=== PATIENT | female | born 1940 | race African-American/Black ===

== ENCOUNTER 2025-02-14 15:19 | Inpatient (IN) | payer MEDICARE, OTHER ==
[~2025-02-14] VITALS: Ht 160 cm; Wt 57.6 kg
[2025-02-14] MEDS: IV NS 0.9% 1,000 ML BAG IV ONE (15:34)
[2025-02-14] MEDS: IV NS 0.9% 500 ML BAG IV ONE ×2 (15:55→17:35)
[2025-02-14] MEDS ORDERED: APIX2.5T PO (15:57)
[2025-02-14] MEDS ORDERED: ACET-868 PO (15:57)
[2025-02-14] MEDS ORDERED: ACET-2812 PO (15:57)
[2025-02-14] MEDS ORDERED: FAMO-130 PO (15:57)
[2025-02-14] MEDS ORDERED: VALP250S4 PO ×2 (15:57)
[2025-02-14] MEDS ORDERED: MELA3TAB41 PO (15:57)
[2025-02-14] MEDS ORDERED: LEVO25TA7 PO (15:57)
[2025-02-14] MEDS ORDERED: SENN-287 PO (15:57)
[2025-02-14] MEDS ORDERED: MAGN355O5 PO (15:57)
[2025-02-14] MEDS ORDERED: LOPE2TAB25 PO (15:57)
[2025-02-14] MEDS ORDERED: CHOL100043 PO (15:57)
[2025-02-14] MEDS ORDERED: ATOR20TA PO (15:57)
[2025-02-14 16:15] LABS: PLATELET COUNT (AUTO) 261 K/uL (150-450); RED BLOOD CELL COUNT(AUTO) 3.94 MIL/uL (4.0-5.2); RED CELL DISTRIBUTION WIDTH 14.9 % (11.5-15.0); WHITE BLOOD COUNT (AUTO) 6.8 K/uL (4.3-11.0)
[2025-02-14 16:25] LABS: CALCIUM, SERUM 9.8 mg/dL (8.5-10.1); CREATININE 2.2 mg/dL (0.6-1.3); SERUM AMMONIA 42 umol/L (11-32); SODIUM SERUM 145 mmol/L (136-145); UREA NITROGEN, BLOOD 21 mg/dL (7-18)
[2025-02-14 16:27] LABS: INR 1.08 (0.91-1.10)
[2025-02-14 16:30] LABS: ASPARTATE AMINOTRANSFERASE 42 U/L (15-37); TOTAL PROTEIN, SERUM 6.2 g/dL (6.4-8.2)
[2025-02-14 16:31] LABS: ALCOHOL, BLOOD < 3 mg/dL (0-10)
[2025-02-14 16:38] LABS: LACTIC ACID 13.1 mmol/L (0.4-2.0)
[2025-02-14] MEDS ORDERED: PIPERACI/TAZO 3.375GM/D5W 50ML PB IV ONE (17:02)
[2025-02-14] MEDS: PIPERACILLIN /TAZOBACTAM 3.375 G in IV D5W 50 ML IV ONE (17:05)
[2025-02-14] MEDS ORDERED: IOHEXOL-350 100 ML VIAL IV ONE (17:19)
[2025-02-14] MEDS ORDERED: IV NS 0.9% 250 ML IV ONE (17:19)
[2025-02-14 18:20] LABS: APPEARANCE,URINE SLIGHTLY CLOUDY (CLEAR); BLOOD, URINE 3+ Ery/uL (NEGATIVE); LEUKOCYTE ESTERASE ,URINE NEGATIVE (NEGATIVE); NITRITE, URINE NEGATIVE (NEGATIVE); UGLUCOSE NEGATIVE (NEGATIVE)
[2025-02-14 18:34] LABS: AMPHETAMINE, URINE NEGATIVE (NEGATIVE); BARBITURATE, URINE NEGATIVE (NEGATIVE); BENZODIAZEPINE, URINE NEGATIVE (NEGATIVE); CANNABINOID, URINE NEGATIVE (NEGATIVE); COCCAINE, URINE NEGATIVE (NEGATIVE); OPIATE, URINE NEGATIVE (NEGATIVE)
[2025-02-14 18:36] LABS: ADD URINE CULTURE YES
[2025-02-14 18:37] LABS: COARSE GRANULAR CASTS,URINE Few /LPF (None Seen); SQUAMOUS EPITHELIAL CELL,UR Few /HPF (None Seen)
[2025-02-14] MEDS: LEVOTHYROXINE INJ 100 MCG VIAL IV ONE (20:53)
[2025-02-14] MEDS ORDERED: ONDANSETRON HCL/PF 4 MG/2 ML VIAL IVP PRN (21:00)
[2025-02-14] MEDS ORDERED: NOREPINEPHRINE 8 MG in IV NS 0.9% 250 ML IV PRN (21:00)
[2025-02-14 21:45] VITALS: BP 131/87; TEMP 96.3; O2SAT 93
[2025-02-14 22:02] VITALS: BP 102/64; O2SAT 98
[2025-02-14 22:30] VITALS: BP 108/77; O2SAT 100
[2025-02-14 23:00] VITALS: BP 111/60; O2SAT 100
[2025-02-14] MEDS ORDERED: LEVETIRACETAM (500MG) 500 MG/5 ML VIAL IV ONE (23:20)
[2025-02-14] MEDS: LEVETIRACETAM (500MG) 500 MG in IV NS 0.9% 100 ML IV SCH (23:36)
[2025-02-14] MEDS: IV NS 0.9% 250 ML IV PRN (23:37)
[2025-02-15] VITALS (21 sets, daily range): BP systolic 91–120; BP diastolic 62–96; TEMP 96.7–99; O2SAT 92–100
[2025-02-15] MEDS: PIPERCILLIN/TAZOBACTAM 2.25GM/D5W 50MLPB IV ONE (01:30)
[2025-02-15] MEDS: PIPERACILLIN /TAZOBACTAM 2.25 G in IV D5W 50 ML IV ONE (01:31)
[2025-02-15] MEDS: NA PHOS,M-B/NA PHOS,DI-BA 1 EA ENEMA RC ONE (03:09)
[2025-02-15 05:08] LABS: CALCIUM, SERUM 9.4 mg/dL (8.5-10.1); CREATININE 1.8 mg/dL (0.6-1.3); SODIUM SERUM 137 mmol/L (136-145); UREA NITROGEN, BLOOD 26 mg/dL (7-18)
[2025-02-15 05:38] LABS: PHOSPHORUS 5.2 mg/dL (2.5-4.9)
[2025-02-15] MEDS: LEVOTHYROXINE INJ 100 MCG VIAL IV SCH (07:53)
[2025-02-15] MEDS: LEVETIRACETAM (500MG) 500 MG in IV NS 0.9% 100 ML IV SCH (09:22)
[2025-02-15] MEDS: ASPIRIN EC 81 MG TABLET.DR PO SCH (09:22)
[2025-02-15] MEDS: ENOXAPARIN SODIUM 60 MG/0.6 ML DISP.SYRIN SQ SCH (09:24)
[2025-02-15 09:34] LABS: PLATELET COUNT (AUTO) 242 K/uL (150-450); RED BLOOD CELL COUNT(AUTO) 5.11 MIL/uL (4.0-5.2); RED CELL DISTRIBUTION WIDTH 15.0 % (11.5-15.0); WHITE BLOOD COUNT (AUTO) 12.1 K/uL (4.3-11.0)
[2025-02-15] MEDS: PIPERACILLIN /TAZOBACTAM 2.25 G in IV D5W 50 ML IV SCH (10:28)
[2025-02-15 16:17] LABS: CREATININE, URINE 82.0 MG/DL (30.0-125.0); URINE SODIUM, RANDOM 13.0 mmol/l (40-220); URINE TOTAL PROTEIN 296.8 mg/dL (0-11.9)
[2025-02-15] MEDS: IV NS 0.9% 1,000 ML BAG IV PRN (18:25)
[2025-02-16] VITALS: BP 134/84; TEMP 98.6; O2SAT 97
[2025-02-16 04:00] VITALS: BP 116/69; TEMP 97.7; O2SAT 97
[2025-02-16 08:00] VITALS: BP 138/94; TEMP 97.7; O2SAT 96
[2025-02-16 08:23] LABS: PLATELET COUNT (AUTO) 267 K/uL (150-450); RED BLOOD CELL COUNT(AUTO) 4.28 MIL/uL (4.0-5.2); RED CELL DISTRIBUTION WIDTH 14.8 % (11.5-15.0); WHITE BLOOD COUNT (AUTO) 10.6 K/uL (4.3-11.0)
[2025-02-16 08:55] LABS: ASPARTATE AMINOTRANSFERASE > 1000 U/L (15-37); CALCIUM, SERUM 9.2 mg/dL (8.5-10.1); CREATININE 3.9 mg/dL (0.6-1.3); PHOSPHORUS 6.6 mg/dL (2.5-4.9); SODIUM SERUM 143 mmol/L (136-145); TOTAL PROTEIN, SERUM 6.3 g/dL (6.4-8.2); UREA NITROGEN, BLOOD 41 mg/dL (7-18)
[2025-02-16 10:43] LABS: CREATINE KINASE, TOTAL 44392 U/L (26-192)
[2025-02-16 12:00] VITALS: BP 129/86; TEMP 98.2; O2SAT 95
[2025-02-16 16:00] VITALS: BP 135/76; TEMP 98.2; O2SAT 97
[2025-02-16 20:00] VITALS: BP 141/73; TEMP 97.5; O2SAT 97
[2025-02-17] VITALS: BP 139/63; TEMP 97.5; O2SAT 97
[2025-02-17 04:00] VITALS: BP 128/77; TEMP 97.7; O2SAT 96
[2025-02-17 05:08] LABS: PTH, INTACT 183 pg/mL (15-65)
[2025-02-17 06:35] LABS: CALCIUM, SERUM 8.6 mg/dL (8.5-10.1); CREATININE 4.6 mg/dL (0.6-1.3); SODIUM SERUM 150.0 mmol/L (136-145); UREA NITROGEN, BLOOD 50.0 mg/dL (7-18)
[2025-02-17 06:37] LABS: PLATELET COUNT (AUTO) 205 K/uL (150-450); RED BLOOD CELL COUNT(AUTO) 3.31 MIL/uL (4.0-5.2); RED CELL DISTRIBUTION WIDTH 15.0 % (11.5-15.0); WHITE BLOOD COUNT (AUTO) 9.8 K/uL (4.3-11.0)
[2025-02-17 07:00] LABS: PHOSPHORUS 6.2 mg/dL (2.5-4.9)
[2025-02-17 08:16] VITALS: BP 146/72; TEMP 97.8; O2SAT 96
[2025-02-17] MEDS: HEPARIN SODIUM, PORCINE 5000 UNITS/1 ML VIAL SQ SCH (08:54)
[2025-02-17 12:30] VITALS: BP 142/79; TEMP 97.6; O2SAT 98
[2025-02-17] MEDS: IV 1/2NS 1000 ML 1,000 ML IV PRN (13:07)
[2025-02-17 16:36] VITALS: BP 150/84; TEMP 97.6; O2SAT 98
[2025-02-17 20:00] VITALS: BP 118/90; TEMP 98.1; O2SAT 95
[2025-02-18 04:00] VITALS: BP 115/71; TEMP 98.3; O2SAT 98
[2025-02-18 05:58] LABS: PLATELET COUNT (AUTO) 185 K/uL (150-450); RED BLOOD CELL COUNT(AUTO) 3.06 MIL/uL (4.0-5.2); RED CELL DISTRIBUTION WIDTH 14.7 % (11.5-15.0); WHITE BLOOD COUNT (AUTO) 8.8 K/uL (4.3-11.0)
[2025-02-18 06:04] LABS: ASPARTATE AMINOTRANSFERASE 771.0 U/L (15-37); CALCIUM, SERUM 8.7 mg/dL (8.5-10.1); CREATININE 4.8 mg/dL (0.6-1.3); PHOSPHORUS 5.2 mg/dL (2.5-4.9); SODIUM SERUM 146.0 mmol/L (136-145); TOTAL PROTEIN, SERUM 5.7 g/dL (6.4-8.2); UREA NITROGEN, BLOOD 51.0 mg/dL (7-18)
[2025-02-18 08:00] VITALS: BP 143/68; TEMP 97.7; O2SAT 97
[2025-02-18 10:39] LABS: LDL 71.0 mg/dL (0-99)
[2025-02-18] MEDS: CITRIC ACID/SODIUM CITRATE (BICITRA)15 ML UDC PO SCH (12:47)
[2025-02-18 16:00] VITALS: BP 148/73; TEMP 97.5; O2SAT 100
[2025-02-18 16:13] LABS: APPEARANCE,URINE CLOUDY (CLEAR); BLOOD, URINE 3+ Ery/uL (NEGATIVE); LEUKOCYTE ESTERASE ,URINE 2+ (NEGATIVE); NITRITE, URINE NEGATIVE (NEGATIVE); UGLUCOSE NEGATIVE (NEGATIVE)
[2025-02-18 16:22] LABS: URINE AMORPHOUS URATE Many /HPF (None Seen)
[2025-02-18 16:23] LABS: COARSE GRANULAR CASTS,URINE Moderate /LPF (None Seen); SQUAMOUS EPITHELIAL CELL,UR Moderate /HPF (None Seen)
[2025-02-18 16:24] LABS: ADD URINE CULTURE YES
[2025-02-18] MEDS: CEFEPIME 1 GM in IV D5W 50 ML IV SCH (21:20)
[2025-02-18 22:00] VITALS: BP 137/75; TEMP 97.5; O2SAT 100
[2025-02-19 04:00] VITALS: BP 132/84; TEMP 97.5; O2SAT 100
[2025-02-19 05:59] LABS: PLATELET COUNT (AUTO) 194 K/uL (150-450); RED BLOOD CELL COUNT(AUTO) 2.95 MIL/uL (4.0-5.2); RED CELL DISTRIBUTION WIDTH 14.5 % (11.5-15.0); WHITE BLOOD COUNT (AUTO) 7.5 K/uL (4.3-11.0)
[2025-02-19 06:14] LABS: ASPARTATE AMINOTRANSFERASE 453.0 U/L (15-37); CALCIUM, SERUM 8.6 mg/dL (8.5-10.1); CREATININE 4.0 mg/dL (0.6-1.3); PHOSPHORUS 4.0 mg/dL (2.5-4.9); SODIUM SERUM 144.0 mmol/L (136-145); TOTAL PROTEIN, SERUM 5.7 g/dL (6.4-8.2); UREA NITROGEN, BLOOD 53.0 mg/dL (7-18)
[2025-02-19 08:00] VITALS: BP 126/68; TEMP 97.3; O2SAT 94
[2025-02-19] MEDS: LACTULOSE 10 G/15 ML UDC (PYXIS) PR ONE (14:48)
[2025-02-19 16:00] VITALS: BP 116/73; TEMP 97.1; O2SAT 96
[2025-02-19 20:00] VITALS: BP 124/70; TEMP 98; O2SAT 95
[2025-02-19 23:27] LABS: APPEARANCE,URINE CLEAR (CLEAR); BLOOD, URINE 2+ Ery/uL (NEGATIVE); LEUKOCYTE ESTERASE ,URINE NEGATIVE (NEGATIVE); NITRITE, URINE NEGATIVE (NEGATIVE); UGLUCOSE NEGATIVE (NEGATIVE)
[2025-02-19 23:36] LABS: ADD URINE CULTURE NO; SQUAMOUS EPITHELIAL CELL,UR Few /HPF (None Seen)
[2025-02-20 04:00] VITALS: BP 120/64; TEMP 98; O2SAT 95
[2025-02-20 07:10] LABS: PLATELET COUNT (AUTO) 188 K/uL (150-450); RED BLOOD CELL COUNT(AUTO) 2.68 MIL/uL (4.0-5.2); RED CELL DISTRIBUTION WIDTH 14.9 % (11.5-15.0); WHITE BLOOD COUNT (AUTO) 6.3 K/uL (4.3-11.0)
[2025-02-20 07:20] LABS: SERUM AMMONIA 15.0 umol/L (11-32)
[2025-02-20 07:27] LABS: CALCIUM, SERUM 8.5 mg/dL (8.5-10.1); CREATININE 3.3 mg/dL (0.6-1.3); PHOSPHORUS 2.9 mg/dL (2.5-4.9); SODIUM SERUM 143.0 mmol/L (136-145); UREA NITROGEN, BLOOD 44.0 mg/dL (7-18)
[2025-02-20] MEDS: LEVOTHYROXINE SODIUM 50 MCG TABLET PO SCH (07:48)
[2025-02-20 08:00] VITALS: BP 126/80; TEMP 97.7; O2SAT 98
[2025-02-20 08:18] LABS: CREATINE KINASE, TOTAL 3109.0 U/L (26-192)
[2025-02-20 08:24] LABS: ASPARTATE AMINOTRANSFERASE 227.0 U/L (15-37); TOTAL PROTEIN, SERUM 5.0 g/dL (6.4-8.2)
[2025-02-20 09:54] LABS: LYMPHOCYTES % (MANUAL) 19 % (16-48); MONOCYTES % (MANUAL) 7 % (0-11.0); NEUTROPHILS % (MANUAL) 71 (42-76); PLATELET ESTIMATE ADEQUATE
[2025-02-20 16:00] VITALS: BP 125/72; TEMP 98.4; O2SAT 100
[2025-02-20 20:00] VITALS: BP 128/73; TEMP 98.2; O2SAT 99
[2025-02-21 04:00] VITALS: BP 127/69; TEMP 98.2; O2SAT 100
[2025-02-21 06:00] LABS: PLATELET COUNT (AUTO) 211 K/uL (150-450); RED BLOOD CELL COUNT(AUTO) 2.68 MIL/uL (4.0-5.2); RED CELL DISTRIBUTION WIDTH 14.6 % (11.5-15.0); WHITE BLOOD COUNT (AUTO) 7.1 K/uL (4.3-11.0)
[2025-02-21 06:13] LABS: SERUM AMMONIA 1.0 umol/L (11-32)
[2025-02-21 06:14] LABS: ASPARTATE AMINOTRANSFERASE 143.0 U/L (15-37); CALCIUM, SERUM 8.7 mg/dL (8.5-10.1); CREATININE 2.9 mg/dL (0.6-1.3); PHOSPHORUS 3.1 mg/dL (2.5-4.9); SODIUM SERUM 144.0 mmol/L (136-145); TOTAL PROTEIN, SERUM 5.1 g/dL (6.4-8.2); UREA NITROGEN, BLOOD 41.0 mg/dL (7-18)
[2025-02-21 06:25] LABS: CREATINE KINASE, TOTAL 1510.0 U/L (26-192)
[2025-02-21 08:00] VITALS: BP 136/84; TEMP 97.5; O2SAT 99
[2025-02-21 16:00] VITALS: BP 120/55; TEMP 97.1; O2SAT 99
[2025-02-21 20:00] VITALS: BP 115/72; TEMP 98.2; O2SAT 99
[2025-02-21] MEDS: VALPROIC ACID 250 MG/5 ML UDC PO SCH (21:28)
[2025-02-22 04:00] VITALS: BP 126/76; TEMP 98.2; O2SAT 99
[2025-02-22 06:47] LABS: PLATELET COUNT (AUTO) 232 K/uL (150-450); RED BLOOD CELL COUNT(AUTO) 2.69 MIL/uL (4.0-5.2); RED CELL DISTRIBUTION WIDTH 14.4 % (11.5-15.0); WHITE BLOOD COUNT (AUTO) 8.4 K/uL (4.3-11.0)
[2025-02-22 06:52] LABS: SERUM AMMONIA 29.0 umol/L (11-32)
[2025-02-22 07:02] LABS: ASPARTATE AMINOTRANSFERASE 89.0 U/L (15-37); CALCIUM, SERUM 8.6 mg/dL (8.5-10.1); CREATININE 2.4 mg/dL (0.6-1.3); PHOSPHORUS 2.6 mg/dL (2.5-4.9); SODIUM SERUM 144.0 mmol/L (136-145); TOTAL PROTEIN, SERUM 5.0 g/dL (6.4-8.2); UREA NITROGEN, BLOOD 37.0 mg/dL (7-18)
[2025-02-22 07:55] LABS: CREATINE KINASE, TOTAL 832.0 U/L (26-192)
[2025-02-22 08:00] VITALS: BP 131/78; TEMP 97.9; O2SAT 99
[2025-02-22] MEDS: VALPROIC ACID 250 MG/5 ML UDC PO SCH (08:27)
[2025-02-22] MEDS: LEVETIRACETAM SOL (5 ML) 100 MG/ML UDC PO SCH (08:27)
[2025-02-22] MEDS: LEVOTHYROXINE SODIUM 25 MCG TABLET PO SCH (08:27)
[2025-02-22] MEDS ORDERED: VALPROIC ACID 250 MG/5 ML UDC PO SCH ×2 (09:00→13:00)
[2025-02-22] MEDS: MAGNESIUM OXIDE 400 MG TABLET PO ONE (11:45)
[2025-02-22 16:00] VITALS: BP 107/72; TEMP 98.2; O2SAT 99
[2025-02-22 20:00] VITALS: BP 123/68; TEMP 97.9; O2SAT 100
[2025-02-23 03:11] LABS: HBSAG SCREEN Negative (Negative); HEPATITIS A AB, IgM Negative (Negative); HEPATITIS B CORE AB, IgM Negative (Negative)
[2025-02-23 04:00] VITALS: BP 128/67; TEMP 97.8; O2SAT 100
[2025-02-23 08:00] VITALS: BP 106/59; TEMP 97.4; O2SAT 100
[2025-02-23 16:00] VITALS: BP 104/60; TEMP 97.3; O2SAT 99
[2025-02-23 20:00] VITALS: BP 138/69; TEMP 97.8; O2SAT 99
[2025-02-23 21:55] LABS: CALCIUM, SERUM 8.8 mg/dL (8.5-10.1); CREATININE 1.8 mg/dL (0.6-1.3); SODIUM SERUM 143.0 mmol/L (136-145); UREA NITROGEN, BLOOD 32.0 mg/dL (7-18)
[2025-02-24 04:00] VITALS: BP 129/69; TEMP 96.8; O2SAT 99
[2025-02-24 06:25] LABS: CALCIUM, SERUM 8.7 mg/dL (8.5-10.1); CREATININE 1.5 mg/dL (0.6-1.3); SODIUM SERUM 144.0 mmol/L (136-145); UREA NITROGEN, BLOOD 30.0 mg/dL (7-18)
[2025-02-24 08:00] VITALS: BP 148/94; TEMP 97.1; O2SAT 99
[2025-02-24] MEDS: IV D5/0.45 NACL 1,000 ML IV SCH (15:38)
[2025-02-24 16:00] VITALS: BP 130/71; TEMP 97.1; O2SAT 100
[2025-02-24 20:10] VITALS: BP 155/72; TEMP 96.8; O2SAT 100
[2025-02-25 04:00] VITALS: BP 128/64; TEMP 96.8; O2SAT 100
[2025-02-25 08:00] VITALS: BP 138/80; TEMP 98.3; O2SAT 100
[2025-02-25 15:40] LABS: PLATELET COUNT (AUTO) 272 K/uL (150-450); RED BLOOD CELL COUNT(AUTO) 2.52 MIL/uL (4.0-5.2); RED CELL DISTRIBUTION WIDTH 14.4 % (11.5-15.0); WHITE BLOOD COUNT (AUTO) 5.2 K/uL (4.3-11.0)
[2025-02-25 15:49] LABS: CALCIUM, SERUM 8.5 mg/dL (8.5-10.1); CREATININE 1.2 mg/dL (0.6-1.3); PHOSPHORUS 2.3 mg/dL (2.5-4.9); SODIUM SERUM 144.0 mmol/L (136-145); UREA NITROGEN, BLOOD 23.0 mg/dL (7-18)
[2025-02-25 16:00] VITALS: BP 132/72; TEMP 98.3; O2SAT 100
[2025-02-25 16:09] LABS: *SPE A/G RATIO 0.9 (0.7-1.7); *SPE ALBUMIN 2.6 g/dL (2.9-4.4); *SPE ALPHA-1-GLOBULIN 0.4 g/dL (0.0-0.4); *SPE ALPHA-2-GLOBULIN 0.7 g/dL (0.4-1.0); *SPE BETA GLOBULIN 0.9 g/dL (0.7-1.3); *SPE GLOBULIN, TOTAL 2.9 g/dL (2.2-3.9); *SPE M-SPIKE Not Observed g/dL (Not Observed); *SPE PROTEIN TOTAL 5.5 g/dL (6.0-8.5); *SPEGAMMA GLOBULIN 0.9 g/dL (0.4-1.8)
[2025-02-25] MEDS ORDERED: FENTANYL PF 100MCG/2ML AMPUL IV PRN (17:00)
[2025-02-25 20:00] VITALS: BP 132/70; TEMP 97.3; O2SAT 100
[2025-02-26 04:00] VITALS: BP 136/95; TEMP 97.7; O2SAT 98
[2025-02-26 08:00] VITALS: BP 149/84; TEMP 98.1; O2SAT 100
[2025-02-26 10:09] LABS: CALCIUM, SERUM 8.5 mg/dL (8.5-10.1); CREATININE 1.1 mg/dL (0.6-1.3); SODIUM SERUM 145.0 mmol/L (136-145); UREA NITROGEN, BLOOD 16.0 mg/dL (7-18)
[2025-02-26] MEDS: POTASSIUM CL. PREMIX PERIPHER. 50 ML IV SCH (12:02)
[2025-02-26] MEDS ORDERED: ANESTHESIA TRAY IN PYXIS 1 EA TRAY MC ONE (12:05)
[2025-02-26 17:00] VITALS: BP 136/83; TEMP 96.8; O2SAT 99
[2025-02-26 20:00] VITALS: BP 131/79; TEMP 97.5; O2SAT 98
[2025-02-27 04:00] VITALS: BP 114/86; TEMP 98.2; O2SAT 97
[2025-02-27 08:00] VITALS: BP 129/79; TEMP 97.5; O2SAT 97
[2025-02-27] MEDS: JEVITY 1.2 CAL 1,000 ML BOTTLE GT PRN (09:24)
[2025-02-27 11:52] LABS: CALCIUM, SERUM 7.5 mg/dL (8.5-10.1); CREATININE 1.0 mg/dL (0.6-1.3); SODIUM SERUM 147.0 mmol/L (136-145); UREA NITROGEN, BLOOD 13.0 mg/dL (7-18)
[2025-02-27 16:00] VITALS: BP 126/79; TEMP 97.7; O2SAT 99
[2025-02-27 18:56] VITALS: BP 126/79; TEMP 97.7; O2SAT 99
[2025-02-27 20:00] VITALS: BP 126/75; TEMP 98; O2SAT 96
[2025-02-28 04:00] VITALS: BP 135/74; TEMP 97.9; O2SAT 100
[2025-02-28 05:58] LABS: PLATELET COUNT (AUTO) 285 K/uL (150-450); RED BLOOD CELL COUNT(AUTO) 2.64 MIL/uL (4.0-5.2); RED CELL DISTRIBUTION WIDTH 15.3 % (11.5-15.0); WHITE BLOOD COUNT (AUTO) 7.9 K/uL (4.3-11.0)
[2025-02-28 06:04] LABS: CALCIUM, SERUM 8.0 mg/dL (8.5-10.1); CREATININE 1.0 mg/dL (0.6-1.3); PHOSPHORUS 2.1 mg/dL (2.5-4.9); SODIUM SERUM 147.0 mmol/L (136-145); UREA NITROGEN, BLOOD 10.0 mg/dL (7-18)
[2025-02-28] MEDS ORDERED: IV D5W 1,000 ML IV PRN (07:30)
[2025-02-28 08:00] VITALS: BP 140/78; TEMP 97.8; O2SAT 100
[2025-02-28] MEDS ORDERED: VALP250S22 PO (08:43)
[2025-02-28] MEDS ORDERED: Aspirin Ec PO (08:43)
[2025-02-28] MEDS ORDERED: ATOR40TA PO (08:43)
[2025-02-28] MEDS ORDERED: LACT-209 GT (08:43)
[2025-02-28] MEDS: POTASSIUM CHLORIDE 20 MEQ POWDER PACKET NG SCH (10:15)
[2025-02-28] MEDS: MAGNESIUM OXIDE 400 MG TABLET NG ONE (10:15)
[2025-02-28] MEDS: NEUTRA PHOS 1 POWD.PACKET NG ONE (15:47)
[2025-02-28 16:00] VITALS: BP 140/78; TEMP 97.8; O2SAT 100
== END 2025-02-28 17:00 | DRG 871 ==
LOC: ER 15:28 → ICU 20:35 → TELE1 02-15 19:07 → MEDSG1 02-17 11:18
PROVIDERS: ADMIT Registered Nurse Psychiatric/Mental Health; ATTEND Internal Medicine
PROC: 0DH63UZ Insertion of Feeding Device into Stomach, Percutaneous Approach (ICD-10-PCS; principal; 2025-02-26 14:00)
DX: A41.9 Sepsis, unspecified organism (principal); G92.8 Other toxic encephalopathy; I21.A1 Myocardial infarction type 2; N17.0 Acute kidney failure with tubular necrosis; E44.1 Mild protein-calorie malnutrition; E72.20 Disorder of urea cycle metabolism, unspecified; E87.20 Acidosis, unspecified; N39.0 Urinary tract infection, site not specified; R64 Cachexia; E87.0 Hyperosmolality and hypernatremia; E05.90 Thyrotoxicosis, unspecified without thyrotoxic crisis or storm; R68.0 Hypothermia, not associated with low environmental temperature; R65.20 Severe sepsis without septic shock; K29.70 Gastritis, unspecified, without bleeding; F03.C0 Unspecified dementia, severe, without behavioral disturbance, psychotic disturbance, mood disturbance, and anxiety; I48.91 Unspecified atrial fibrillation; I10 Essential (primary) hypertension; Z86.73 Personal history of transient ischemic attack (TIA), and cerebral infarction without residual deficits; R13.10 Dysphagia, unspecified; E03.9 Hypothyroidism, unspecified; Z79.01 Long term (current) use of anticoagulants; Z79.899 Other long term (current) drug therapy; Z79.890 Hormone replacement therapy; M89.8X9 Other specified disorders of bone, unspecified site; R73.9 Hyperglycemia, unspecified; K76.0 Fatty (change of) liver, not elsewhere classified; K57.30 Diverticulosis of large intestine without perforation or abscess without bleeding; D64.9 Anemia, unspecified; E88.09 Other disorders of plasma-protein metabolism, not elsewhere classified; G40.909 Epilepsy, unspecified, not intractable, without status epilepticus; K52.89 Other specified noninfective gastroenteritis and colitis; K56.41 Fecal impaction; Z78.1 Physical restraint status; E86.0 Dehydration
CPT/HCPCS: 36415; 43246; 70450-TC; 71045-TC; 72170-TC; 74018; 76536-TC; 76705-TC; 76770-TC; 80048-TC; 80053-TC; 80061-TC; 80076-TC; 80164-TC; 81001; 82140-TC; 82550-TC; 82553; 82570-TC; 82607-TC; 82962-TC; 83605-TC; 83735-TC; 83921; 83970; 84100-TC; 84155; 84165; 84300-TC; 84425; 84439-TC; 84443-TC; 84481; 84484-TC; 85025-TC; 85027-TC; 85730-TC; 87040-TC; 87081-TC; 87086-TC; 92526; 92611; 93307-TC; A4223; A6213; A6253; G0378; G0480; J0692; J1644; J1650; J1953; J2543; J3480; J3490; J7030; J7050; J7060; Q9967